=== PATIENT | male | born 1950 | race Caucasian/White ===

== ENCOUNTER → 2017-12-22 09:02 | Outpatient (CLI) | payer MEDICARE, OTHER, SELFPAY ==
--- NOTE | 2017-12-22 | XR_ITS ---
XR elbow RT min 3V HISTORY: ITS.REASON: RT ELBOW PAIN ORDERING PHYSICIAN: Cathy Omer MD PATIENT AGE: 66 years COMPARISON: None FINDINGS: The elbow joint has an unremarkable appearance. No fracture or dislocation. No significant arthritic change lytic change or blastic change. Incidental note is made of a density along the mid aspect of the forearm laterally measuring 5 mm etiology indeterminate. This could be due to soft tissue calcification or a foreign body. IMPRESSION: 1. Negative right elbow. 2. Soft tissue calcification versus foreign body in the mid forearm
== END ==
PROVIDERS: PCP Family Medicine; Visit Provider Family Medicine
DX: M25.521 Pain in right elbow (principal)
CPT/HCPCS: 73080

== ENCOUNTER → 2018-01-01 09:28 | Outpatient (CLI) | payer MEDICARE, OTHER, SELFPAY ==
--- NOTE | 2018-01-01 09:32 | MR_ITS ---
MR knee RT wo con Ordering Physician: Cathy Omer MD Patient Age: 67 years: Male HISTORY: ITS.REASON: PAIN IN RIGHT KNEE Pain medial side of the knee symptoms 2 weeks. No trauma TECHNIQUE: Multiplanar multisequence imaging 1.5 T MR COMPARISON :No comparison studies. No plain film right knee for comparison FINDINGS . Abnormal Medial Meniscal/tear: Degenerated diminutive body medial meniscus. Suggestion of subtle minimal meniscal tear extending to the inferior surface of the posterior horn. Likely some minimal tears extend from this area through body medial meniscus..: . Specifically note subtle oblique horizontal tear extending to the inferior aspect near free margin posterior horn, best seen Sagittal PD image 18 and 17. Small diminutive body medial meniscus, likely reflects degeneration possibly with fraying suspect small underlying tear towards inferior surface and base on coronal view. Medial compartment: Reactive, increased bone signal changes are seen at the medial margin the medial tibial plateau. Chondral thinning most evident here but also seen throughout the medial compartment . Also focal osteochondral signal abnormality seen at posterior femoral condyle, just superior to the posterior horn of medial meniscus on sagittal views. There is focal mild chondral thinning of here with associated over 8 mm area of signal abnormality in underlying medial femoral condyle Lateral Compartment: Intact Lateral meniscus and lateral compartment intact cartilage well-maintained. Cartilage well-maintained Patellofemoral Joint:.Abnormal Prominent Chondral loss & thinning is seen, most evident towards the medial facet, and superior patella. There are underlying osteochondral signal abnormalities superior patella associated beneath these areas. Small joint effusion most evident at patella bursa. Posterior there is likely small synovial cyst seen extending superior to the joint just above the lateral femoral condyle, accounts for small 18 fluid collection here as seen axial image 6, sagittal slice 9. Plain film correlation may be of benefit this and other features.. Minimal fluid overlying patellar tendon. Patellar tendon itself seems to be intact. ACL and PCL is intact. The medial and collateral ligaments are intact. note: This study was dictated with a voice-recognition system. There may be typographical error is related to such. If they are significant please notify us for corrections ......... IMPRESSION......... 1. Medial meniscal degeneration & tear. ... Suspect minimal tear at posterior horn extending towards inferior surface near free margin.,. ... Minimal tear & fraying likely also involving the small degenerated & diminutive body of medial meniscus. 2. Chondral thinning medial compartment becomes most evident towards its medial margin. ... Associated reactive bone changes/bone edema changes at medial corner of medial tibial plateau ... Also small focal osteochondral defect with focal chondral thinning, posterior aspect medial femoral condyle 3. Pronounced chondral loss and thinning at medial facet of patella. Associated osteochondral defects/, bone signal abnormalities here beneath superior patella . 4.Joint effusion.:
== END ==
PROVIDERS: Family Provider Family Medicine; PCP Family Medicine; Visit Provider Family Medicine
DX: M25.561 Pain in right knee (principal)
CPT/HCPCS: 73721

== ENCOUNTER → 2018-01-04 14:51 | Outpatient (CLI) | payer MEDICARE, OTHER, SELFPAY ==
--- NOTE | 2018-01-04 14:54 | US_ITS ---
US thyroid HISTORY: ITS.REASON: THYROID NODULE ORDERING PHYSICIAN: Cathy Omer MD PATIENT AGE: 67 years Comparison: None FINDINGS: Right lobe: 4.8 x 1.9 x 2.9 cm. Heterogeneous nodule measuring 1 cm upper pole 1.6 x 1 cm heterogeneous nodule midpole 1.2 x 0.6 cm slightly hypoechoic nodule lower pole Left lobe: 4.7 x 2.3 x 2.6 cm 1 x 0.5 cm isoechoic nodule upper pole 1.4 x 1.7 mm mixed nodule midpole. 1.1 x 0.8 cm slightly hypoechoic nodule lower pole Isthmus: 8 mm cyst in the mid left aspect of the isthmus. The isthmus is thickened at 7 mm IMPRESSION: Multinodular goiter
== END ==
PROVIDERS: Family Provider Family Medicine; PCP Family Medicine; Visit Provider Family Medicine
DX: E04.1 Nontoxic single thyroid nodule (principal)
CPT/HCPCS: 76536

== ENCOUNTER → 2018-01-21 15:42 | Outpatient (CLI) | payer MEDICARE, OTHER, SELFPAY ==
[2018-01-21 19:40] LABS: Calcium 8.3 mg/dL (8.5-10.1); Free T4 (Free Thyroxine) 1.21 ng/dl (0.76-1.46); Thyroid Stimulating Hormone 0.81 uIU/ml (0.358-3.740)
[2018-01-23 08:18] LABS: Thyroid Peroxidase Antibodies 9 IU/mL (0-34)
[2018-01-23 18:07] LABS: Triiodothyronine (T3) Free 3.7 pg/mL (2.0-4.4)
[2018-01-26 09:01] LABS: Thyroid Stimulating Immunoglob <0.10 IU/L (0.00-0.55)
== END ==
PROVIDERS: Visit Provider Otolaryngology
DX: E04.1 Nontoxic single thyroid nodule (principal); E04.9 Nontoxic goiter, unspecified
CPT/HCPCS: 36415; 82310; 84439; 84443; 84445; 84481; 86376

== ENCOUNTER → 2018-02-01 12:15 | Outpatient (CLI) | payer MEDICARE, OTHER, SELFPAY ==
--- NOTE | 2018-02-01 12:17 | US_ITS ---
US organ site (thyroid), FNA w guidance HISTORY: ITS.REASON: dominant left nodule 1.7cm ORDERING PHYSICIAN: David Sullivan MD PATIENT AGE: 67 years COMPARISON: 01/04/2018 Pre-biopsy ultrasound: Ultrasound performed for planning for the best approach for the biopsy. Dominant nodule is again noted in the lower pole and the left TECHNIQUE: Following obtaining informed consent, using aseptic technique and local anesthesia with buffered lidocaine, fine-needle aspiration was performed of the nodule of interest in the lower pole on the left using sonographic guidance. 3 passes were made into the nodule with a 25-gauge needle. Specimen was given to cytology. The patient tolerated the procedure well without evidence of immediate complications and left the ultrasound suite in stable condition. CYTOLOGY:Negative for malignancy. Benign goitrous follicular nodule IMPRESSION: Successful sonographic guided FNA of the left thyroid nodule showing benign findings
== END ==
PROVIDERS: Family Provider Family Medicine; PCP Family Medicine; Visit Provider Otolaryngology
DX: E04.1 Nontoxic single thyroid nodule (principal); E04.9 Nontoxic goiter, unspecified
CPT/HCPCS: 10022; 76536; 88173

== ENCOUNTER → 2018-02-24 08:40 | Outpatient (CLI) | payer MEDICARE, OTHER, SELFPAY ==
[2018-02-24 09:38] LABS: Basophils % 0.6 % (0.1-2.0); Eosinophils % 0.7 % (0.1-12.0); Hematocrit 46.2 % (42.0-52.0); Hemoglobin 16.1 g/dL (14.1-18.0); Lymphocytes # 2.1 K/mm3 (0.7-4.5); Lymphocytes % 36.4 K/mm3 (10-50); Mean Corpuscular HGB Conc 34.8 g/dL (31.8-35.4); Mean Corpuscular Hemoglobin 28.9 pg (27.0-31.2); Mean Corpuscular Volume 83.1 fl (80-94); Mean Platelet Volume 7.5 fl (7.4-10.4); Monocytes # 0.5 K/mm3 (0.1-1.0); Neutrophils # 3.2 K/mm3 (1.8-7.8); Neutrophils % 54.2 % (37.0-80.0); Platelet Count 217 K/mm3 (142-424); Red Blood Count 5.56 M/mm3 (4.60-6.20); Red Cell Distribution Width 13.3 % (11.5-17.5); White Blood Count 5.9 K/mm3 (4.8-10.8)
[2018-02-24 10:57] LABS: Alanine Aminotransferase 24 U/L (12-78); Albumin Level 3.7 gm/dL (3.4-5.0); Albumin/Globulin Ratio 1.1 (1.1-1.8); Alkaline Phosphatase 87 U/L (46-116); Anion Gap 8.8 mEq/L (5-15); Aspartate Amino Transferase 9 U/L (15-37); Bilirubin,Total 0.6 mg/dL (0.2-1.0); Blood Urea Nitrogen 13 mg/dL (7-18); Calcium 8.8 mg/dL (8.5-10.1); Carbon Dioxide 31 mmol/L (21.0-32.0); Chloride 104 mmol/L (98-107); Creatinine,Serum 1.12 mg/dL (0.70-1.30); Estimated Glomerular Filt Rate 65 ml/min (>60); GFR (African American) 79 ML/MIN (>60); Globulin 3.4 gm/dl (1.3-3.2); Glucose 115 mg/dL (74-106); Potassium 3.8 mmoL/L (3.5-5.1); Sodium 140 mmol/L (136-145); Total Protein,Serum 7.1 gm/dL (6.4-8.2)
== END ==
PROVIDERS: Visit Provider Otolaryngology
DX: E04.1 Nontoxic single thyroid nodule (principal); E04.9 Nontoxic goiter, unspecified
CPT/HCPCS: 36415; 80053; 85025; 93005

== ENCOUNTER → 2018-03-22 12:26 | Outpatient (CLI) | payer MEDICARE, OTHER, SELFPAY ==
--- NOTE | 2018-03-22 | XR_ITS ---
XR knee LT 3V HISTORY: ITS.REASON: ACUTE PAIN OF LT KNEE ORDERING PHYSICIAN: Alyse Shelton PATIENT AGE: 67 years COMPARISON: 11/14/2010 FINDINGS: Moderate osteoarthritic changes involving the medial and lateral compartment with severe osteoarthritis of the patellofemoral joint. There is decrease in joint space with osteophyte formation. Calcification is present along the medial aspect of the distal femur and could be related to old injury. No acute fracture or dislocation. No lytic or blastic change. There is increased density in the suprapatellar region consistent with a joint effusion. IMPRESSION: Moderate to severe osteoarthritis of the left knee with knee joint effusion. Osteoarthritis has progressed since 11/14/2010
== END ==
PROVIDERS: PCP Nurse Practitioner; Visit Provider Nurse Practitioner
DX: M25.562 Pain in left knee (principal)
CPT/HCPCS: 73562

== ENCOUNTER → 2018-04-14 08:51 | Outpatient (CLI) | payer MEDICARE, OTHER, SELFPAY ==
[2018-04-14 10:07] LABS: Free T4 (Free Thyroxine) 1.22 ng/dl (0.76-1.46)
[2018-04-14 10:12] LABS: Thyroid Stimulating Hormone 1.62 uIU/ml (0.358-3.740)
== END ==
PROVIDERS: Family Provider Family Medicine; PCP Nurse Practitioner; Visit Provider Otolaryngology
DX: D49.7 Neoplasm of unspecified behavior of endocrine glands and other parts of nervous system (principal)
CPT/HCPCS: 36415; 84439; 84443

== ENCOUNTER → 2019-04-14 08:17 | Outpatient (CLI) | payer MEDICARE, OTHER, SELFPAY ==
[2019-04-14 10:12] LABS: Free T4 (Free Thyroxine) 1.16 ng/dl (0.76-1.46)
== END ==
PROVIDERS: Visit Provider Otolaryngology
DX: D49.7 Neoplasm of unspecified behavior of endocrine glands and other parts of nervous system (principal)
CPT/HCPCS: 36415; 84439; 84443

== ENCOUNTER → 2020-04-11 08:35 | Outpatient (CLI) | payer MEDICARE, OTHER, SELFPAY ==
[2020-04-11 09:25] LABS: Free T4 (Free Thyroxine) 1.39 ng/dl (0.78-2.19)
[2020-04-11 09:40] LABS: Thyroid Stimulating Hormone 2.08 uIU/mL (0.465-4.68)
== END ==
PROVIDERS: Visit Provider Otolaryngology
DX: E03.9 Hypothyroidism, unspecified (principal)
CPT/HCPCS: 36415; 84439; 84443

== ENCOUNTER → 2020-06-29 11:03 | Outpatient (CLI) | payer MEDICARE, OTHER, SELFPAY ==
[2020-06-29 12:03] LABS: Basophils % 0.5 % (0.1-2.0); Eosinophils % 0.4 % (0.1-12.0); Hematocrit 49.3 % (42.0-52.0); Hemoglobin 16.6 g/dL (14.1-18.0); Lymphocytes # 2.7 K/mm3 (0.7-4.5); Lymphocytes % 32.5 % (10-50); Mean Corpuscular HGB Conc 33.7 g/dL (31.8-35.4); Mean Corpuscular Hemoglobin 28.9 pg (27.0-31.2); Mean Corpuscular Volume 85.7 fl (80-94); Mean Platelet Volume 8.4 fl (7.4-10.4); Monocytes # 0.6 K/mm3 (0.1-1.0); Monocytes % 6.5 % (1.7-9.3); Neutrophils # 5.1 K/mm3 (1.8-7.8); Neutrophils % 60.2 % (37.0-80.0); Platelet Count 279 K/mm3 (142-424); Red Blood Count 5.76 M/mm3 (4.60-6.20); Red Cell Distribution Width 13.9 % (11.5-17.5); White Blood Count 8.4 K/mm3 (4.8-10.8)
[2020-06-29 12:49] LABS: Chloride 100 mmol/L (98-107); Potassium 3.9 mmoL/L (3.5-5.1); Sodium 138 mmol/L (136-145)
[2020-06-29 12:52] LABS: Alanine Aminotransferase 19 U/L (12-78); Albumin Level 4.2 g/dl (3.5-5.0); Albumin/Globulin Ratio 1.4 (1.1-1.8); Alkaline Phosphatase 89 U/L (38-126); Anion Gap 9.9 mEq/L (5-15); Aspartate Amino Transferase 19 U/L (17-59); Bilirubin,Total 0.6 mg/dl (0.2-1.3); Blood Urea Nitrogen 15 mg/dl (9-20); Carbon Dioxide 32 mmol/L (22.0-30.0); Estimated Glomerular Filt Rate 84 ml/min (>60); GFR (African American) 101 ML/MIN (>60); Total Protein,Serum 7.2 g/dl (6.3-8.2)
[2020-06-29 12:53] LABS: Calcium 9.3 mg/dl (8.4-10.2); Glucose 163 mg/dl (74-100)
[2020-06-29 13:01] LABS: INR 1.06 (0.9-1.1); Prothrombin Time 11.7 seconds (9.4-11.8)
[2020-06-29 13:24] LABS: Thyroid Stimulating Hormone 1.44 uIU/mL (0.465-4.68)
== END ==
PROVIDERS: Visit Provider Nurse Practitioner Family
DX: Z02.1 Encounter for pre-employment examination (principal); M17.12 Unilateral primary osteoarthritis, left knee; Z79.899 Other long term (current) drug therapy; Z51.81 Encounter for therapeutic drug level monitoring
CPT/HCPCS: 36415; 80053; 84443; 85025; 85610

== ENCOUNTER → 2020-07-13 11:38 | Outpatient (CLI) | payer MEDICARE, OTHER, SELFPAY ==
--- NOTE | 2020-07-13 11:50 | XR_ITS ---
PROCEDURE: XR CHEST 2V CLINICAL HISTORY: high blood pressure , pre-op COMPARISON: CT CTAC CTA-CHEST from 01/09/2017 CR CXR CHEST(2 VIEWS-NOT PORTABLE) from 01/09/2017 FINDINGS: The cardiomediastinal silhouette and pulmonary vascularity are within normal limits. The lungs are clear without infiltrates, suspicious nodules, or pleural effusions. No acute bony abnormalities. IMPRESSION: No acute findings. Dictated by: Gio Jimenez MD 07/13/2020 12:35 Gio Jimenez MD in [place] 07/13/2020 12:35
--- NOTE | 2020-07-13 12:13 | ECG_ITS ---
APPROVED REPORT Exam: Resting ECG HR:65 bpm ECG Measurements Heart Rate 65 AXES VA 178 P 79 QRSd 92 QRS 19 QT 412 T 60 QTc 428 Conclusion Normal sinus rhythm Normal ECG Electronically signed by : Loc De La Rosa, 07/13/2020 19:08:49
== END ==
PROVIDERS: PCP Family Medicine; Visit Provider Nurse Practitioner Family
DX: Z02.1 Encounter for pre-employment examination (principal); M17.12 Unilateral primary osteoarthritis, left knee
CPT/HCPCS: 71046; 93005

== ENCOUNTER → 2021-04-10 10:54 | Outpatient (CLI) | payer MEDICARE, OTHER, SELFPAY ==
[2021-04-10 13:09] LABS: Free T4 (Free Thyroxine) 1.37 ng/dl (0.78-2.19)
[2021-04-10 13:21] LABS: Thyroid Stimulating Hormone 1.03 uIU/mL (0.465-4.68)
== END ==
PROVIDERS: Visit Provider Otolaryngology
DX: E03.9 Hypothyroidism, unspecified (principal)
CPT/HCPCS: 36415; 84439; 84443

== ENCOUNTER → 2022-05-07 12:25 | Outpatient (CLI) | payer MEDICARE, OTHER, SELFPAY ==
[2022-05-07 13:27] LABS: Free T4 (Free Thyroxine) 1.41 ng/dl (0.78-2.19)
== END ==
PROVIDERS: PCP Family Medicine; Visit Provider Otolaryngology
DX: E89.0 Postprocedural hypothyroidism (principal)
CPT/HCPCS: 36415; 84439; 84443

== ENCOUNTER → 2022-06-26 11:25 | Outpatient (CLI) | payer MEDICARE, OTHER, SELFPAY ==
[2022-06-26 13:00] LABS: Basophils # 0.1 K/mm3 (0-0.2); Basophils % 0.8 % (0.1-2.0); Eosinophils % 0.6 % (0.1-12.0); Hematocrit 49.6 % (42.0-52.0); Hemoglobin 16.1 g/dL (14.1-18.0); Lymphocytes # 1.9 K/mm3 (0.7-4.5); Lymphocytes % 31.4 % (10-50); Mean Corpuscular HGB Conc 32.5 g/dL (31.8-35.4); Mean Corpuscular Hemoglobin 28.2 pg (27.0-31.2); Mean Corpuscular Volume 86.7 fl (80-94); Mean Platelet Volume 9.2 fl (7.4-10.4); Monocytes # 0.5 K/mm3 (0.1-1.0); Monocytes % 8.4 % (1.7-9.3); Neutrophils # 3.5 K/mm3 (1.8-7.8); Neutrophils % 58.8 % (37.0-80.0); Platelet Count 273 K/mm3 (142-424); Red Blood Count 5.72 M/mm3 (4.60-6.20); Red Cell Distribution Width 13.7 % (11.5-17.5)
[2022-06-26 13:25] LABS: Chloride 101 mmol/L (98-107); Sodium 139 mmol/L (136-145)
[2022-06-26 13:26] LABS: Potassium 3.5 mmoL/L (3.5-5.1)
[2022-06-26 13:28] LABS: Alanine Aminotransferase 14 U/L (12-78); Albumin Level 4.1 g/dl (3.5-5.0); Alkaline Phosphatase 87 U/L (38-126); Anion Gap 8.5 mEq/L (5-15); Aspartate Amino Transferase 23 U/L (17-59); Bilirubin,Direct 0.2 mg/dl (0.0-0.4); Bilirubin,Indirect 0.4 mg/dL (0.0-0.9); Bilirubin,Total 0.6 mg/dl (0.2-1.3); Bilirubin,Unconjugated 0.4 mg/dL (0.0-1.1); Blood Urea Nitrogen 9 mg/dl (9-20); Calcium 9.4 mg/dl (8.4-10.2); Carbon Dioxide 33 mmol/L (22.0-30.0); Cholesterol 167 mg/dl (140-200); Estimated Glomerular Filt Rate 66 ml/min (>60); GFR (African American) 80 ML/MIN (>60); Glucose 78 mg/dl (74-100); Total Protein,Serum 6.7 g/dl (6.3-8.2); Triglycerides 101 mg/dl (30-150); VLDL Cholesterol 20 mg/dL (0-40)
[2022-06-26 13:29] LABS: Chol/HDL Ratio 4.9 (1-3.5); HDL Cholesterol 34 mg/dl (40-60)
[2022-06-26 13:40] LABS: Direct LDL Cholesterol 106.16 mg/dL (100-129)
[2022-06-26 13:45] LABS: Free T4 (Free Thyroxine) 1.28 ng/dl (0.78-2.19)
[2022-06-26 14:00] LABS: Thyroid Stimulating Hormone 1.06 uIU/mL (0.465-4.68)
== END ==
PROVIDERS: PCP Family Medicine; Visit Provider Nurse Practitioner
DX: I10 Essential (primary) hypertension (principal); R06.00 Dyspnea, unspecified; R07.9 Chest pain, unspecified; Z82.49 Family history of ischemic heart disease and other diseases of the circulatory system; Z87.891 Personal history of nicotine dependence
CPT/HCPCS: 36415; 80048; 80061; 80076; 83735; 84439; 84443; 85025

== ENCOUNTER → 2022-07-10 07:11 | Outpatient (CLI) | payer MEDICARE, OTHER, SELFPAY ==
--- NOTE | 2022-07-10 | CA_ITS ---
APPROVED REPORT Exam: Exercise Treadmill Technologist: Maricel Corbett, Ht: 5 ft 11 in Wt: 228 lbs BSA: 2.23 m2 HR: 64 bpm BP: 167/84 mmHg Rhythm: NSR, cannot R/O old inferior AR Medical History Medical History: HTN Medications: Amlodipine,,,,, Levothyroxine,,,,, Losartan HCTZ,,,,, Potassium ER,,,,, Cardiac Risk Factors: HTN, FHX of CAD Stress Test Details Test: Maria Eugenia HR Resting HR: 85 bpm Max Heart Rate (APMHR): 149.798824 bpm Max HR Achieved: 182 bpm Target HR (85% APMHR): 126.242335 bpm % of APMHR: 122.15 Recovery HR: 122 bpm BP Resting BP: 145/82 mmHg Max BP: 204/84 mmHg Recovery BP: 190.0/84.0 mmHg ECG Resting ECG: NSR, cannot R/O old inferior AR Clinical Exercise duration: 06:31 min Highest Stage Achieved: Exercise capacity: 7.0 METs Stress ECG Conclusion During maria eugenia protocol pt exercised total of 6:31. No CP noted. No arrhythmias noted. Non specific J point elevation in leads 3, aVF. Nonspecific ST-T changes in anterolateral leads in recovery. Probably normal GXT. Myoview images reported separately. Test Summary REST . . . . . . . Sitting REST . . . . . . . Standing REST 03:55 0.0 0.0 85 . 145/ 82 . . Stage 1 01:00 10.0 1.7 106 . . . . Stage 1 02:00 10.0 1.7 109 . . . . Stage 1 03:00 10.0 1.7 116 . 204/ 84 . . Stage 2 01:00 12.0 2.5 136 . . . . Stage 2 02:00 12.0 2.5 138 . . . . Stage 2 03:00 12.0 2.5 144 . . . . Stage 3 00:31 14.0 3.4 159 . . . Stop exercise at 06:31 RECOVERY 01:00 0.0 0.0 122 . . . . RECOVERY 02:00 0.0 0.0 101 . 190/ 84 . . RECOVERY 03:00 0.0 0.0 92 . 166/ 81 . . RECOVERY 04:00 0.0 0.0 87 . 166/ 81 . . RECOVERY 05:00 0.0 0.0 86 . 156/ 74 . . RECOVERY 06:00 0.0 0.0 83 . 156/ 74 . . RECOVERY 07:00 0.0 0.0 91 . 156/ 74 . . RECOVERY 07:21 0.0 0.0 88 . 156/ 74 . . Electronically signed by : Shaggy Covarrubias MD 07/11/2022 08:29:04
--- NOTE | 2022-07-10 07:11 | NM_ITS ---
APPROVED REPORT Exam: Nuclear Stress Test Indication: chest pain,,dizziness Patient Location: Outpatient Stress Tech: Maricel Corbett MO Tech:DESTINI Damon RT(R)(N) Ht: 6 ft 0 in Wt: 230 lbs HR: 85 bpm BP: 145/82 mmHg BSA: 2.26 m2 TID: 1.00 History: chest pain,,dizziness Procedure: Patient exercised on [place] protocol 6:31 minutes and sec, resting heart rate 85 bpm, resting blood pressure 145/82 mmHg, with exercise maximum heart rate achived was 182 bpm which is 122 % of the maximum predicted heart rate and blood pressure was 204/84 mmHg. Patient denied any complaint of chest pain. Patient has Adequate exercise capacity, achieved 7.0 METs of workload on treadmill, the blood pressure response to exercise was Adequate. Electrocardiogram Resting electrocardiogram showed sinus rhythm nonspecific ST-T changes, with exercise there is less than 1.[address] segment depression noted from the baseline EKG. The EKG portion of the exercise Myoview is nondiagnostic due to baseline abnormal EKG. Cardiac Stress and Resting SPECT Images: Cardiac Stress and Resting SPECT images were obtained using technetium 99m Myoview 32.4 mCi stress and 10.86 mCi at rest. Gated SPECT for analysis of segmental wall motion and calculation of the ejection fraction also done. Prone images were also obtained. Cardiac stress and rest SPECT images show reversible ischemia involving the anteroseptal wall, in addition there is partial reversible defect suggestive of mixed ischemia and scar involving the inferior wall, computer derived ejection fraction is 53% with mild inferior wall hypokinesis. Right ventricle is normal size and contractility. Conclusion: 1. The EKG portion of the exercise Myoview was nondiagnostic due to baseline abnormal EKG, patient has adequate exercise capacity achieved 7.0 METS of workload on treadmill, the blood pressure response to exercise was adequate, patient complained of shortness of breath. 2. Scintigraphic evidence of reversible ischemia involving the anteroseptal wall, in addition there is partial reversible defect in the inferior wall suggestive of mixed ischemia and scar, computer derived ejection fraction 53% with segmental wall motion abnormality described above, right ventricle is normal size and contractility. 3. Abnormal exercise Myoview study suggestive of multivessel coronary artery disease. Electronically signed by : Shaggy Covarrubias MD 07/11/2022 08:32:38
--- NOTE | 2022-07-10 09:00 | CA_ITS ---
FINAL REPORT TECHNIQUE: Color Doppler, duplex Doppler and sweeney scale sonography of the bilateral neck arterial vasculature was performed. Velocities were measured in the carotid arteries. Stenosis evaluation based on the validated velocity criteria. CLINICAL HISTORY: dizziness FINDINGS: The peak systolic velocity of the right common carotid artery is 116 cm/s. The peak systolic velocity of the right internal carotid artery is 90 cm/s and end diastolic velocity 30 cm/s. A small amount of plaque is present. The right external carotid artery is patent. The right vertebral artery is patent with antegrade flow. The peak systolic velocity of the left common carotid artery is 94 cm/s. The peak systolic velocity of the left internal carotid artery is 86 cm/s and end diastolic velocity 30 cm/s. A small amount of plaque is present. The left external carotid artery is patent.The left vertebral artery is patent with antegrade flow. IMPRESSION: Less than 50% bilateral carotid stenoses. Bilateral patent vertebral arteries with antegrade flow. If indicated, CTA or MRA could further evaluate. Reviewed, Interpreted and Dictated by Al Beaver III, MD Transcribed by Eli Delvalle Authenticated and [facility]
--- NOTE | 2022-07-10 09:00 | CA_ITS ---
APPROVED REPORT EXAM: Comprehensive 2D, Doppler, and color-flow Echocardiogram Walking Dragline Operator: Dorcas Martin CRT Ht: 5 ft 11 in Wt: 228lbs BSA: 2.23 BP: 127/86 mmHg Indications: Chest Pain, Shortness of Breath 2D Dimensions LVOT 1.89 cm (M/F) 1.5-2.5 LA Volume 52.40 mL LA Volume Index 23.00 mL/m2 (M/F) 16-34 M-Mode Dimensions RVDd 2.81 cm (0.9-2.6) LA Diam 3.31 cm (1.9-4.0) LVDd 4.94 cm (3.5-5.7) Ao Diam 3.92 cm (2.0-3.7) LVDs 3.56 cm (3.5-5.7) IVSd 1.28 cm (0.6-1.1) PWd 0.96 cm (0.6-1.1) EF (Teich) 53.90% FS 27.90% EDV (Teich) 115.00 mL TAPSE 2.59 (<1.7) ESV (Teich) 53.00 mL LV Diastology E Decel Time 183.00 (160-240 msec) E/A Ratio 0.76 MED E' 10.40 (< 7 cm/sec) MED A' 16.60 cm/s E'/MED E' Ratio 5.07 (>14) LAT E' 8.60 (<10 cm/sec) LAT A' 11.00 cm/s E/LAT E' Ratio 6.13 (>14) Aortic Valve AO Peak GR. 8.10 mmHg Mitral Valve MV A Velocity 69.00 (40-130 cm/s) E/A Ratio 0.76 MV Decel. Time 183.00 (160-240 ms) Pulmonary Valve PV Peak Velocity 98.00 (50-150 cm/s) Tricuspid Valve TR P. Velocity 227.00 cm/s RAP Estimate 10.00 mmHg RVSP 30.70 mmHg Left Ventricle Left atrium is mildly enlarged, left ventricle is normal size mild concentric left ventricular hypertrophy, estimated ejection fraction 55% with no regional wall motion abnormality, grade 1 diastolic dysfunction seen without tissue Doppler evidence of raise left atrial pressure. Right Ventricle Right atrium and right ventricle are mildly enlarged with normal contractility. Aortic Valve Aortic valve is minimally thickened and fibrosed there is no aortic stenosis or aortic insufficiency. Mitral Valve Mitral valve grossly normal, there is trace mitral regurgitation. Tricuspid Valve Tricuspid valve grossly normal, there is trace tricuspid regurgitation, tricuspid regurgitation jet velocity is inadequate for calculation of the right ventricular systolic pressure. Pulmonic Valve Pulmonic valve is poorly visualized. Great Vessels Aortic root is normal size. Inferior vena cava is poorly visualized. Pericardium No significant pericardial effusion noted. Conclusion 1. Mild biatrial enlargement, normal left ventricular size, mild concentric left ventricular hypertrophy, estimated ejection fraction 55% with no regional wall motion abnormality, grade 1 diastolic dysfunction seen without tissue Doppler evidence of raise left atrial pressure. 2. Mildly enlarged right ventricle with normal contractility. 3. Trace mitral and tricuspid regurgitation. 4. No significant pericardial effusion noted. 5. Inferior vena cava is poorly visualized. Electronically signed by : Shaggy Covarrubias MD 07/11/2022 10:36:49
== END ==
PROVIDERS: PCP Family Medicine; Visit Provider Nurse Practitioner
DX: I10 Essential (primary) hypertension (principal); R06.00 Dyspnea, unspecified; R07.9 Chest pain, unspecified; Z82.49 Family history of ischemic heart disease and other diseases of the circulatory system; Z87.891 Personal history of nicotine dependence; R42 Dizziness and giddiness
CPT/HCPCS: 78452; 93017; 93306; 93880; A9502

== ENCOUNTER 2022-07-24 08:50 | Day surgery (SDC) | payer MEDICARE, OTHER, SELFPAY ==
[2022-07-24] VITALS (11 sets, daily range): BP systolic 112–148; BP diastolic 67–87; PULSE 69–89; RESP 18–20; O2SAT 95–99; BMI 32.1
--- NOTE | 2022-07-24 07:25 | IR_ITS ---
APPROVED REPORT Patient Location: Outpatient Smoking Pipe Coater: DESTINI Laboy RT (R) PROCEDURES Left heart catheterization Left ventriculogram Selective coronary angiogram Intravascular ultrasound of the proximal LAD Drug-eluting stent deployment to the proximal LAD INDICATION High risk abnormal Myoview with anterior septal ischemia, Angina pectoris typical in quality, MLA 3.5 in the proximal LAD, Angiographic indeterminate coronary artery disease, Coronary artery disease Informed consent was obtained prior to the procedure. COMPLICATIONS None Estimated Blood Loss: Less than 10 ML TECHNIQUE One percent lidocaine used to anesthetize the right anterior aspect of the wrist. The right radial artery was accessed via the Seldinger technique. A 6 Somali sheath was placed in the right radial artery. 2.5 mg of verapamil, 800 mcg of nitroglycerin, 1mg Lidocaine and 5000 U Heparin were given through the arterial sheath. The papa catheter was also used to perform left heart catheterization, left ventriculogram and selective coronary angiogram. At the end the diagnostic angiogram therapeutic heparin was administered giving a therapeutic ACT and a Choice PT extra-support wire was placed down the LAD. Intravascular ultrasound probe was advanced which demonstrated an MLA of 3.5 mm??? in the proximal LAD. This did correspond to the high risk abnormal Myoview therefore 3.5 x 18 mm resolute [place] stent was deployed in this area at 16 félix reducing the hemodynamically severe stenosis to 0%. At the end the procedure the apparatus was removed the sheath was removed good hemostasis was achieved using TR banding patient was transferred to the postop holding area in stable condition. CHRISTIN-3 flow present before and after the procedure ANGIOGRAPHIC RESULTS The left main artery Normal The left anterior descending artery Had an ostial 20% stenosis with a proximal 40 to 50% stenosis The circumflex artery Large dominant normal The right coronary artery Nondominant normal The MELCHOR ventriculogram reveals Normal 65% The left ventricular end-diastolic pressure 10 mmHg IMPRESSION Severe proximal LAD disease by IVUS criteria and high risk abnormal Myoview as described above with successful stenting reducing lesion to 0% with 1 drug-eluting stent Normal ejection fraction Normal left ventricular end-diastolic pressure PLAN 1. Dual antiplatelet therapy 2. LDL less than 55 to be achieved with high intensity statin 3. Avoidance of tobacco products 4. Risk factor modification 5. Cardiac rehabilitation Electronically signed by : Deniz Nettles MD 07/24/2022 12:24:33
[2022-07-24 09:17] LABS: Basophils # 0.1 K/mm3 (0-0.2); Basophils % 1.1 % (0.1-2.0); Eosinophils # 0.1 K/mm3 (0.0-0.4); Eosinophils % 0.8 % (0.1-12.0); Hematocrit 49.8 % (42.0-52.0); Lymphocytes % 29.2 % (10-50); Mean Corpuscular HGB Conc 34.1 g/dL (31.8-35.4); Mean Corpuscular Hemoglobin 28.9 pg (27.0-31.2); Mean Corpuscular Volume 84.7 fl (80-94); Mean Platelet Volume 8.3 fl (7.4-10.4); Monocytes # 0.5 K/mm3 (0.1-1.0); Monocytes % 7.8 % (1.7-9.3); Neutrophils # 4.1 K/mm3 (1.8-7.8); Neutrophils % 61.2 % (37.0-80.0); Platelet Count 291 K/mm3 (142-424); Red Blood Count 5.88 M/mm3 (4.60-6.20); Red Cell Distribution Width 13.9 % (11.5-17.5); White Blood Count 6.7 K/mm3 (4.8-10.8)
[2022-07-24 09:23] LABS: Chloride 101 mmol/L (98-107); Potassium 3.4 mmoL/L (3.5-5.1); Sodium 140 mmol/L (136-145)
[2022-07-24 09:26] LABS: Blood Urea Nitrogen 14 mg/dl (9-20); Creatinine Clearance Estimated 91 mL/min (50-200); Estimated Glomerular Filt Rate 66 ml/min (>60); GFR (African American) 80 ML/MIN (>60)
[2022-07-24 09:27] LABS: Anion Gap 9.4 mEq/L (5-15); Calcium 8.8 mg/dl (8.4-10.2); Carbon Dioxide 33 mmol/L (22.0-30.0); Glucose 119 mg/dl (74-100)
[2022-07-24 14:24] LABS: CATHL Activated Clotting Time 270 SEC (74-125)
--- NOTE | 2022-07-24 15:33 | HMH.PHACL ---
PHA Tool Filer Hand Discharge Med Family Day Care Worker: Zeb Vega has received discharge medication counseling on the following medications: ASPIRIN (NEW) BRILINTA (NEW) LOSARTAN/HCTZ LIPITOR (NEW) HOLDING ON BETA WINSTON AT THIS TIME. PATIENT VERBALIZED UNDERSTANDING AND HAD NO QUESTIONS. -CHACHO FELIPE, PHARMD
== END 2022-07-24 15:49 | disposition home or self-care (01) ==
PROVIDERS: PCP Family Medicine; Visit Provider Internal Medicine
DX: I25.118 Atherosclerotic heart disease of native coronary artery with other forms of angina pectoris (principal); Z79.899 Other long term (current) drug therapy; E03.9 Hypothyroidism, unspecified; Z82.49 Family history of ischemic heart disease and other diseases of the circulatory system; I10 Essential (primary) hypertension; R06.00 Dyspnea, unspecified; Z87.891 Personal history of nicotine dependence
CPT/HCPCS: 36415; 80048; 85025; 85347; 92928; 92978; 93458; 99152; C1725; C1760; C1769; C1876; C9600; J1644; Q9967

== ENCOUNTER 2022-08-06 12:54 | Outpatient (RCR) | payer MEDICARE, OTHER, SELFPAY | END 2022-09-26 09:00 | disposition home or self-care (01) | LOC: PT 12:54 | PROVIDERS: Visit Provider Internal Medicine | DX: I25.10 Atherosclerotic heart disease of native coronary artery without angina pectoris (principal); Z95.5 Presence of coronary angioplasty implant and graft | CPT/HCPCS: 93798 ==

== ENCOUNTER → 2022-10-27 08:49 | Outpatient (CLI) | payer MEDICARE, OTHER, SELFPAY ==
[2022-10-27 10:30] LABS: Free T4 (Free Thyroxine) 1.55 ng/dl (0.78-2.19)
[2022-10-27 10:44] LABS: Thyroid Stimulating Hormone 1.42 uIU/mL (0.465-4.68)
== END ==
PROVIDERS: PCP Family Medicine; Visit Provider Otolaryngology
DX: E03.9 Hypothyroidism, unspecified (principal); I10 Essential (primary) hypertension
CPT/HCPCS: 36415; 84439; 84443

== ENCOUNTER → 2022-11-12 08:27 | Outpatient (POV) | payer MEDICARE, OTHER, SELFPAY | PROVIDERS: Visit Provider Specialist/Technologist | DX: Z00.00 Encounter for general adult medical examination without abnormal findings (principal) ==

== ENCOUNTER → 2022-11-26 08:26 | Outpatient (POV) | payer MEDICARE, OTHER, SELFPAY | PROVIDERS: Visit Provider Specialist/Technologist | DX: Z00.00 Encounter for general adult medical examination without abnormal findings (principal) ==

== ENCOUNTER 2023-06-24 10:36 | Day surgery (SDC) | payer MEDICARE, OTHER, SELFPAY ==
[2023-06-24 11:26] VITALS: BP 128/70; PULSE 82; RESP 18; TEMP 36.6; O2SAT 97; BMI 28.8
[2023-06-24 12:04] VITALS: O2SAT 95
--- NOTE | 2023-06-24 12:08 | P.PNANES_ITS ---
[facility] Disclaimer: The information contained in this section may have been updated after the patient was seen, as this information can be updated by other users. Medical History Abnormal result of cardiovascular function study Benign positional vertigo Chest pain Dry ear canal Dyspnea Family history of ischemic heart disease Former smoker HTN (hypertension), benign Hypothyroidism Impacted cerumen, right ear Tinnitus Typical angina Vertigo Surgical History H/O thyroidectomy History of appendectomy Family History Other Coronary artery disease Diabetes Heart attack Hyperlipidemia Hypertension Social History Smoking Status: Former smoker alcohol intake: never substance use type: denies use current occupational status: employed Travel in the last 8 weeks: None [facility] Anesthesia Checklist Patient Identification Patient Identification: Arm Band and Verbal (Name & ) Structural Data Admitted From: Home Planned Operative Procedure/s: EGD Consent for Planned Operative Procedure(s) Verified: Yes NPO Status Verified Time NPO: 00:00 Additional verifications Anesthesia Reactions: No Airway Assessment Mallampati Score:: Class II C-Spine Mobility Assessed: Yes TMJ Mobility Assessed: Yes Dentition: Good Dentition Neurological Assessment Level of Consciousness: Awake Hx Seizures: No Numbness or tingling in extremities: No Anesthesia Plan Anesthesia Risk discussed: Yes Anesthesia Plan: Verified ASA Class: II Anesthesia Type: MAC
--- NOTE | 2023-06-24 12:15 | HMH.SCOPE ---
Procedure: Date: 06/24/23 Patient Date of :: 1950 Procedure Performed:: EGD Indications:: The patient is a 72 year old with chronic GERD, non cardiac chest pain, and intermittent dysphagia Performing Provider:: Drake Morrison MD Referring Provider:: Elayne Lugo APRN (Gastroenterology) ANUSHKA Omer MD (primary care physician) Sedation:: See RN records Procedure:: The gastroscope was gently passed through the incisoral orifice into the oral cavity and under direct visualization the esophagus was intubated. The endoscope was passed down the esophagus, through the stomach, and into the duodenum. Color, texture, mucosa, and anatomy of the esophagus, stomach, and duodenum were carefully examined with the scope. Findings:: Oropharynx: normal Esophagus: normal. Biopsies obtained mid and distal esophagus. Empiric dilatation performed with 56F bougie dilator EG Junction: intact at 40 cm Cardia: normal Fundus: normal Body: Moderate gastritis. Biopsy obtained Antrum: Moderate gastritis. Biopsy obtained Duodenal bulb: normal Duodenum (second and third portion): normal Impression: Moderate gastritis Recommendations:: Await pathology results Continue pantoprazole as prescribed (patient reports improvement in GERD and chest pain on medication) Antireflux measures Complications:: None Estimated blood obtained (mL): 0 Colonoscopy Component Colonoscopy Component Was a colonoscopy performed during today's procedure?: No
[2023-06-24 12:17] VITALS: BP 87/59; PULSE 81; RESP 17; TEMP 36.6; O2SAT 93
[2023-06-24 12:27] VITALS: BP 95/62; PULSE 94; RESP 16; O2SAT 95
[2023-06-24 12:37] VITALS: BP 120/68; PULSE 84; RESP 16; O2SAT 98
[2023-06-24 12:47] VITALS: BP 110/74; PULSE 75; RESP 16; TEMP 36.6; O2SAT 96
== END 2023-06-24 12:47 | disposition home or self-care (01) ==
PROVIDERS: PCP Family Medicine; Visit Provider Internal Medicine
PROC: 0DJ08ZZ Inspection of Upper Intestinal Tract, Via Natural or Artificial Opening Endoscopic (ICD-10-PCS; CPT 43235; principal; 2023-06-24 11:30)
DX: R13.10 Dysphagia, unspecified; K29.50 Unspecified chronic gastritis without bleeding; K21.00 Gastro-esophageal reflux disease with esophagitis, without bleeding
CPT/HCPCS: 43239; 43248; 88305

== ENCOUNTER → 2023-07-08 10:43 | Outpatient (CLI) | payer MEDICARE, OTHER, SELFPAY ==
--- NOTE | 2023-07-08 10:52 | XR_ITS ---
FINAL REPORT CLINICAL HISTORY: RANJIT HAND PAIN FINDINGS: Left hand Three views were obtained. There is no acute fracture or dislocation. 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 There are minimal hypertrophic changes of osteoarthritis involving the basilar joint. No soft tissue abnormality is identified. IMPRESSION: Degenerative changes as above. Reviewed, Interpreted and Dictated by Gary Griffiths MD Transcribed by Constance Fletcher Authenticated and . [facility]
--- NOTE | 2023-07-08 10:52 | XR_ITS ---
FINAL REPORT CLINICAL HISTORY: RANJIT HAND PAIN FINDINGS: Right hand Three views were obtained. There is no acute fracture or dislocation. 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 No soft tissue abnormality is identified. IMPRESSION: Degenerative changes as above. Reviewed, Interpreted and Dictated by Gary Griffiths MD Transcribed by Constance Fletcher Authenticated and [facility]
== END ==
PROVIDERS: PCP Family Medicine; Visit Provider Family Medicine
DX: M79.641 Pain in right hand (principal); M79.642 Pain in left hand
CPT/HCPCS: 73130

== ENCOUNTER 2023-08-11 09:40 | Outpatient (CLI) | payer MEDICARE, OTHER, SELFPAY ==
[2023-08-11 09:58] LABS: Basophils % 0.5 % (0.1-2.0); Eosinophils # 0.1 K/mm3 (0.0-0.4); Eosinophils % 0.8 % (0.1-12.0); Hematocrit 50.1 % (42.0-52.0); Hemoglobin 16.4 g/dL (14.1-18.0); Lymphocytes # 2.1 K/mm3 (0.7-4.5); Lymphocytes % 29.7 % (10-50); Mean Corpuscular HGB Conc 32.7 g/dL (31.8-35.4); Mean Corpuscular Hemoglobin 27.2 pg (27.0-31.2); Mean Corpuscular Volume 83.4 fl (80-94); Monocytes # 0.5 K/mm3 (0.1-1.0); Monocytes % 6.7 % (1.7-9.3); Neutrophils # 4.3 K/mm3 (1.8-7.8); Neutrophils % 62.3 % (37.0-80.0); Platelet Count 279 K/mm3 (142-424); Red Blood Count 6.01 M/mm3 (4.60-6.20); White Blood Count 6.9 K/mm3 (4.8-10.8)
[2023-08-11 10:51] LABS: Alanine Aminotransferase 17 U/L (12-78); Albumin Level 4.2 g/dl (3.5-5.0); Alkaline Phosphatase 91 U/L (38-126); Anion Gap 10.6 mEq/L (5-15); Aspartate Amino Transferase 22 U/L (17-59); Bilirubin,Direct 0.1 mg/dl (0.0-0.4); Bilirubin,Indirect 0.5 mg/dL (0.0-0.9); Bilirubin,Total 0.6 mg/dl (0.2-1.3); Bilirubin,Unconjugated 0.5 mg/dL (0.0-1.1); Blood Urea Nitrogen 14 mg/dl (9-20); Calcium 8.8 mg/dl (8.4-10.2); Carbon Dioxide 33 mmol/L (22.0-30.0); Chloride 100 mmol/L (98-107); Chol/HDL Ratio 3.8 (1-3.5); Cholesterol 151 mg/dl (140-200); Estimated Glomerular Filt Rate 73 ml/min (>60); GFR (African American) 89 ML/MIN (>60); Glucose 101 mg/dl (74-100); HDL Cholesterol 40 mg/dl (40-60); Potassium 3.6 mmoL/L (3.5-5.1); Sodium 140 mmol/L (136-145); Total Protein,Serum 6.9 g/dl (6.3-8.2); Triglycerides 67 mg/dl (30-150); VLDL Cholesterol 13 mg/dL (0-40)
[2023-08-11 11:49] LABS: Free T4 (Free Thyroxine) 1.59 ng/dl (0.78-2.19)
[2023-08-11 14:59] LABS: Direct LDL Cholesterol 95.35 mg/dL (100-129)
== END 2023-08-11 23:59 ==
LOC: LAB 09:42
PROVIDERS: PCP Family Medicine; Visit Provider Nurse Practitioner Family
DX: E78.5 Hyperlipidemia, unspecified (principal); I11.9 Hypertensive heart disease without heart failure; I25.10 Atherosclerotic heart disease of native coronary artery without angina pectoris; Z82.49 Family history of ischemic heart disease and other diseases of the circulatory system; Z87.891 Personal history of nicotine dependence
CPT/HCPCS: 36415; 80048; 80061; 80076; 83735; 84439; 84443; 85025

== ENCOUNTER 2023-10-21 10:46 | Outpatient (CLI) | payer MEDICARE, OTHER, SELFPAY ==
--- NOTE | 2023-10-21 10:47 | US_ITS ---
FINAL REPORT CLINICAL HISTORY: thyroid nodule COMPARISON: 02/01/2018 FINDINGS: THYROID ULTRASOUND: The left lobe of the thyroid has been surgically resected. The right lobe of the thyroid measures 5.4 x 2.1 x 2.7 cm in size. There are multiple nodules within the right lobe of the thyroid gland, including 1 in the mid right thyroid lobe, measuring 1.8 x 1.1 cm in size, slightly larger than seen on the prior exam. This mass is solid, a TI-RADS category 4 nodule. There is an upper pole nodule as well, measuring 1.0 cm in size, which is stable when compared to the prior exam. The isthmus measures 3 mm in thickness. IMPRESSION: Dominant nodule in the midportion of the right thyroid, 1.8 x 1.1 cm in size, is slightly larger than noted on the prior ultrasound of 2018. Would recommend biopsy at this time. Reviewed, Interpreted and Dictated by Gary Griffiths MD Transcribed by Katherin Rogel Authenticated and [facility]
[2023-10-21 12:55] LABS: Free T4 (Free Thyroxine) 1.68 ng/dl (0.78-2.19)
[2023-10-21 13:09] LABS: Thyroid Stimulating Hormone 0.89 uIU/mL (0.465-4.68)
== END 2023-10-21 23:59 ==
LOC: RAD 10:46
PROVIDERS: PCP Family Medicine; Visit Provider Nurse Practitioner
DX: E03.9 Hypothyroidism, unspecified (principal)
CPT/HCPCS: 36415; 76536; 84439; 84443

== ENCOUNTER 2023-11-03 09:55 | Outpatient (CLI) | payer MEDICARE, OTHER, SELFPAY ==
--- NOTE | 2023-11-03 09:56 | US_ITS ---
FINAL REPORT CLINICAL HISTORY: .RT THYROID FNA - KEATON MERCHANT FINDINGS: Ultrasound guided thyroid biopsy. HISTORY: Thyroid mass. PROCEDURE: After informed consent was obtained and a time-out was performed, the patient was prepped and draped in usual sterile fashion over the anterior neck. Utilizing local anesthesia and sterile technique with a 25-gauge needle, access to the lesion was obtained. 3 passes were made. The patient received no conscious sedation. The patient tolerated procedure well and left the department in good condition. IMPRESSION: Status post ultrasound guided biopsy of a thyroid nodule without immediate complication. Films reviewed , interpreted and dictated by Dr. Beaver Transcribed by Keaton Lan PA-C. Reviewed, Interpreted and Dictated by Al Beaver III, MD Transcribed by MAYUR Reich Authenticated and [facility]
== END 2023-11-03 23:59 | disposition home or self-care (01) ==
LOC: RAD 09:56
PROVIDERS: PCP Nurse Practitioner; Visit Provider Nurse Practitioner
DX: E04.1 Nontoxic single thyroid nodule (principal)
CPT/HCPCS: 10005

== ENCOUNTER 2023-12-09 11:50 | Outpatient (CLI) | payer MEDICARE, OTHER, SELFPAY ==
[2023-12-09 11:57] LABS: Adenovirus F 40/41, stool Not Detected (NotDetected); Campylobacter Not Detected (NotDetected); Clostridium Difficile A/B, PCR Not Detected (NotDetected); Cryptosporidium Not Detected (NotDetected); Cyclospora Cayetanesis Not Detected (NotDetected); Entamoeba histolytica Not Detected (NotDetected); Enteroaggregative E coli Not Detected (NotDetected); Enteropathogenic E coli Not Detected (NotDetected); Enterotoxigenic E coli Not Detected (NotDetected); Giardia lamblia Not Detected (NotDetected); Norovirus Not Detected (NotDetected); Plesimonas Shigalloides, PCR Not Detected (NotDetected); Rotavirus A Not Detected (NotDetected); Salmonella, PCR Not Detected (NotDetected); Sapovirus Not Detected (NotDetected); Shiga-like toxin E coli Not Detected (NotDetected); Shigella Enterovasive E coli Not Detected (NotDetected); Vibrio Cholerae Not Detected (NotDetected); Vibrio, PCR Not Detected (NotDetected); Yersinia Entercolitica, PCR Not Detected (NotDetected)
[2023-12-09 17:18] LABS: Astrovirus Detected (NotDetected)
== END 2023-12-09 23:59 | disposition home or self-care (01) ==
LOC: LAB.DROPOF 11:51
PROVIDERS: PCP Family Medicine; Visit Provider Nurse Practitioner
DX: R19.7 Diarrhea, unspecified (principal)
CPT/HCPCS: 87506

== ENCOUNTER 2024-06-29 10:07 | Outpatient (CLI) | payer MEDICARE, OTHER, SELFPAY ==
--- NOTE | 2024-06-29 10:12 | US_ITS ---
FINAL REPORT CLINICAL HISTORY: history of thyroid nodule COMPARISON: 10/21/2023 FINDINGS: Sonographic images of the thyroid gland were obtained. The right thyroid lobe measures 55 mm. in length. The left thyroid lobe is surgically absent. The thyroid isthmus measures 5 mm. There is heterogeneous echotexture. Several nodules are noted in the right lobe. One of the larger nodules on the right measures 11 x 9 x 6 mm, was 18 mm, which is visually improved from the prior. This mass is mostly solid isoechoic, TI-RADS 3. Other smaller nodules are noted. IMPRESSION: Left lobe surgically absent. Small nodules with 1 nodule in the mid right thyroid improved. No definite new mass or nodule. No specific follow-up recommended. Reviewed, Interpreted and Dictated by Al Beaver III, MD Transcribed by Lilibeth Farmer Authenticated and [facility]
== END 2024-06-29 23:59 | disposition home or self-care (01) ==
LOC: RAD 10:08
PROVIDERS: PCP Family Medicine; Visit Provider Otolaryngology
DX: E04.1 Nontoxic single thyroid nodule (principal)
CPT/HCPCS: 76536

== ENCOUNTER 2025-07-03 07:54 | Outpatient (CLI) | payer MEDICARE, OTHER, SELFPAY ==
--- OUTSIDE RECORDS SUMMARY | 2025-07-03 07:57 | XMS_ITS ---
Laboratory report Created on: June 27, 2025 SUDHA SO : 1950 Sex: Male Author Name CHRIS ABERNATHY Organization Unknown PROBLEMS Problems List Code Description M79.643 RESULTS Laboratory Orders Date Order Code Test 2023-07-08 [id number] BRYAN+RF QN 2023-07-08 [id number] URIC ACID 2023-07-08 [id number] C-REACTIVE PROTE IN, QUANT Laboratory Results Date LOINC Test Value Unit Reference Range Interpre tation 2023-07-08 8061-4 BRYAN DIRECT N NEGATIVE 2023-07-08 82742-5 RHEUMATOID FACTOR (RF) <10.0 IU/ML <14.0 2023-07-08 3084-1 URIC ACID 6.1 MG/DL 3.8-8.4 2023-07-08 1988-5 C-REACTIVE PROTE IN, QUANT 2 MG/L 0-10
--- OUTSIDE RECORDS SUMMARY | 2025-07-03 07:57 | XMS_ITS ---
Laboratory report Created on: June 27, 2025 SUDHA SO : 1950 Sex: Male Author Name CHRIS ABERNATHY Organization Unknown PROBLEMS Problems List Code Description M79.643 RESULTS Laboratory Orders Date Order Code Test 2023-07-08 [id number] CBC WITH DIFFERE NTIAL/PLATELET 2023-07-08 [id number] ERYTHROCYTE SEDI MENTATION RATE Laboratory Results Date LOINC Test Value Unit Reference Range Interpre tation 2023-07-08 6690-2 WBC 7.4 X10E3/UL 3.4-10.8 2023-07-08 789-8 RBC 5.85 X10E6/UL 4.14-5.80 H 2023-07-08 718-7 HEMOGLOBIN 16.4 G/DL 13.0-17.7 2023-07-08 4544-3 HEMATOCRIT 47.2 % 37.5-51.0 2023-07-08 787-2 MCV 81 FL 79-97 2023-07-08 785-6 MCH 28 PG 26.6-33.0 2023-07-08 786-4 MCHC 34.7 G/DL 31.5-35.7 2023-07-08 788-0 RDW 13 % 11.6-15.4 2023-07-08 777-3 PLATELETS 286 X10E3/UL 624-500 3182-12-13 770-8 NEUTROPHILS 65 % 2023-07-08 736-9 LYMPHS 26 % 2023-07-08 5905-5 MONOCYTES 8 % 2023-07-08 713-8 EOS 0 % 2023-07-08 706-2 BASOS 0 % 2023-07-08 751-8 NEUTROPHILS (ABSOLUTE) 4.8 X10E3/UL 1.4-7.0 2023-07-08 731-0 LYMPHS (ABSOLUTE) 1.9 X10E3/UL 0.7-3.1 2023-07-08 742-7 MONOCYTES(ABSOLUTE) .6 X10E3/UL 0.1-0.9 2023-07-08 711-2 EOS (ABSOLUTE) 0 X10E3/UL 0.0-0.4 2023-07-08 704-7 BASO (ABSOLUTE) 0 X10E3/UL 0.0-0.2 2023-07-08 34765-8 IMMATURE GRANULOCYTES 1 % 2023-07-08 31393-4 IMMATURE GRANS (ABS) 0 X10E3/UL 0.0-0.1 2023-07-08 4957-7 ERYTHROCYTE SEDIMENTATION RATE 6 MM/HR 0-30
--- NOTE | 2025-07-03 08:00 | US_ITS ---
PROCEDURE INFORMATION: Exam: US Soft Tissue Head and Neck, TI-RADS Exam date and time: 07/03/2025 8:27 AM Age: 74 years old Clinical indication: Abnormal findings; Abnormal radiologic study of neck; Additional info: Monitor right thyroid nodule TECHNIQUE: Imaging protocol: Real-time ultrasound scan of the neck with image documentation. Exam focused on the thyroid. Total images: 254 COMPARISON: US THYROID 06/29/2024 10:18 AM FINDINGS: Right thyroid lobe: Right lobe measures 5.5 x 2.8 x 1.9 cm. Left thyroid lobe: Left thyroid lobe is surgically absent. Isthmus: Isthmus measures 5 mm. Thyroid nodule 1 Size: 1.0 x 1.3 x 0.8 cm Thyroid nodule 1 Location: Right lobe Thyroid nodule 1 Composition: Solid Thyroid nodule 1 Echogenicity: Hypoechoic Thyroid nodule 1 Shape: Wider than tall Thyroid nodule 1 Margins: Smoothly marginated. Thyroid nodule 1 Echogenic foci: Macrocalcifications Thyroid nodule 1 Points: 5 Thyroid nodule 2 Size: 1.0 x 1.0 x 0.7 cm Thyroid nodule 2 Location: Right lobe Thyroid nodule 2 Composition: Mixed solid and cystic Thyroid nodule 2 Echogenicity: Hypoechoic Thyroid nodule 2 Shape: Wider than tall Thyroid nodule 2 Margins: Smoothly marginated. Thyroid nodule 2 Echogenic foci: Echogenic Thyroid nodule 2 Points: 3 Thyroid nodule 3 Size: 0.9 x 1.0 x 0.8 cm Thyroid nodule 3 Location: Right lobe Thyroid nodule 3 Composition: Solid Thyroid nodule 3 Echogenicity: Isoechoic Thyroid nodule 3 Shape: Wider than tall Thyroid nodule 3 Margins: Smoothly marginated. Thyroid nodule 3 Echogenic foci: No echogenic foci Thyroid nodule 3 Points: 3 Lymph nodes: No enlarged nodes. IMPRESSION: 1. Nodule 1: TI-RADS category TR4, Moderately Suspicious. Follow-up thyroid ultrasound at 1, 2, 3, and 5 years is recommended. (Reference: Tessler) 2. Nodule 2: TI-RADS category TR3, Mildly Suspicious. No fine needle aspiration or follow-up ultrasound is recommended. (Reference: Tessler) 3. Nodule 3: TI-RADS category TR3, Mildly Suspicious. No fine needle aspiration or follow-up ultrasound is recommended. (Reference: Tessler) 4. Left thyroid lobe is surgically absent. REFERENCES: Miguelangel FN, Mohini WD, Rhett EG et al. ACR Thyroid Imaging, Reporting and Data System (TI-RADS): White Paper of the ACR TI-RADS Committee. J Am Ivis Radiol. 2017; 14: 587-595.
[2025-07-03 10:04] LABS: Free T4 (Free Thyroxine) 1.44 ng/dl (0.78-2.19)
[2025-07-03 11:10] LABS: Thyroid Stimulating Hormone 1.46 uIU/mL (0.465-4.68)
== END 2025-07-03 23:59 | disposition home or self-care (01) ==
LOC: RAD 07:56
PROVIDERS: Nurse Practitioner; PCP Family Medicine; Visit Provider Otolaryngology
DX: E04.2 Nontoxic multinodular goiter (principal); E89.0 Postprocedural hypothyroidism
CPT/HCPCS: 36415; 76536; 84439; 84443

== ENCOUNTER 2025-07-18 08:04 | Outpatient (CLI) | payer MEDICARE, OTHER, SELFPAY ==
--- NOTE | 2025-07-18 08:11 | XR_ITS ---
FINAL REPORT TECHNIQUE: 2 view chest CLINICAL HISTORY: SOA pre-op knee surgery COMPARISON: None FINDINGS: CHEST 2 VIEWS: No acute pulmonary density is evident. There is no evidence of effusion or other pleural disease. The mediastinum has a normal appearance. There is evidence of prior granulomatous disease. The cardiac silhouette is unremarkable. IMPRESSION: Unremarkable chest exam. Reviewed, Interpreted and Dictated by Samara Liang MD Transcribed by Katherin Rogel Authenticated and [facility]
== END 2025-07-18 23:59 ==
LOC: RAD 08:05
PROVIDERS: PCP Family Medicine; Visit Provider Nurse Practitioner
DX: Z01.818 Encounter for other preprocedural examination (principal); R06.02 Shortness of breath
CPT/HCPCS: 71046